=== PATIENT | male | born 1965 | race Caucasian/White ===

== ENCOUNTER → 2020-06-16 | Outpatient (CLI) | payer BC ==
[~2020-06-16] MED LIST: CRESTOR20 MG PO; NEXIUM40 MG PO
[2020-06-16 09:27] LABS: HEMOGLOBIN 15.6 gm/dl (14.0-17.5); RED BLOOD COUNT 5.03 M/UL (4.20-5.50); WHITE BLOOD COUNT 8.9 K/UL (4.5-11.0)
== END ==
LOC: LAB 08:42
PROVIDERS: Internal Medicine
DX: E78.5 Hyperlipidemia, unspecified (principal); N40.1 Benign prostatic hyperplasia with lower urinary tract symptoms
CPT/HCPCS: 36415; 80048; 80061; 80076; 84443; 85025

== ENCOUNTER → 2021-05-07 | Outpatient (CLI) | payer BC ==
[2021-05-07 07:45] LABS: HEMOGLOBIN 14.8 gm/dl (14.0-17.5); RED BLOOD COUNT 4.96 M/UL (4.20-5.50); WHITE BLOOD COUNT 7.7 K/UL (4.5-11.0)
[2021-05-08 07:12] LABS: BUN 25 mg/dL (6-24); BUN/CREATININE RATIO 17 (9-20); CARBON DIOXIDE, TOTAL 22 mmol/L (20-29); CHLORIDE, SERUM 107 mmol/L (96-106); CREATININE, SERUM 1.49 mg/dL (0.76-1.27); EGFR IF AFRICN AM 60 (>59); EGFR IF NONAFRICN AM 52 (>59); GLUCOSE, SERUM 118 mg/dL (65-99); POTASSIUM, SERUM 4.6 mmol/L (3.5-5.2); SODIUM, SERUM 141 mmol/L (134-144)
[2021-05-08 08:15] LABS: ALBUMIN 4.5 g/dL (3.8-4.9); ALKALINE PHOSPHATASE 78 IU/L (44-121); ALT (SGPT) 39 IU/L (0-44); AST (SGOT) 26 IU/L (0-40); BILIRUBIN, DIRECT 0.13 mg/dL (0.00-0.40); BILIRUBIN, TOTAL 0.3 mg/dL (0.0-1.2); CHOLESTEROL, TOTAL 171 mg/dL (100-199); HDL CHOLESTEROL 34 mg/dL (>39); LDL CHOLESTEROL CALC 104 mg/dL (0-99); LDL/HDL RATIO 3.1 ratio (0.0-3.6); PROTEIN, TOTAL 7.1 g/dL (6.0-8.5); TRIGLYCERIDES 188 mg/dL (0-149)
== END ==
LOC: LAB 06:38
PROVIDERS: Internal Medicine
DX: E78.5 Hyperlipidemia, unspecified (principal); N40.1 Benign prostatic hyperplasia with lower urinary tract symptoms
CPT/HCPCS: 36415; 80048; 80061; 80076; 84153; 84443; 85025